=== PATIENT | female | born 1990 ===

== ENCOUNTER 2017-07-11 01:29 | Observation (INO) | payer SELFPAY ==
--- NOTE | 2017-07-11 01:48 | ED PDOC ---
Arrival/HPI - General Chief Complaint: Abdominal Pain Time Seen by Provider: 07/11/17 01:36 Historian: Patient - History of Present Illness Narrative History of Present Illness (Text): 07/11/17 01:47 Tracy Martinez is a 26 year old female, with no significant past medical history , presents to the Emergency department complaining of abdominal pain radiating to her back for months. Patient states pain worsened today with associated nausea and vomiting. Patient denies any fever, chills, chest pain, shortness of breath, diarrhea, urinary symptoms, headache, dizziness, or any other complaints. Time/Duration: > month (few months) Symptom Onset: Gradual Symptom Course: Worsening Activities at Onset: Light Context: Home Past Medical History - Provider Review Nursing Documentation Reviewed: Yes - Travel History Have you recently traveled outside [place] w/in the past 3 mons?: No - Genitourinary/Gynecological Other/Comment: pt has iud x1 yr - Psychiatric Hx Substance Use: No - Surgical History Hx Tonsillectomy: Yes Family/Social History - Physician Review Nursing Documentation Reviewed: Yes Family/Social History: Unknown Family HX Smoking Status: Never Smoked Hx Alcohol Use: No Hx Substance Use: No Allergies/Home Meds Allergies/Adverse Reactions: Allergies No Known Allergies Allergy (Verified 07/11/17 01:40) Home Medications: Home Meds Medication Instructions Recorded Confirmed No Known Home Med 07/11/17 07/11/17 Review of Systems - Physician Review All systems were reviewed & negative as marked: Yes - Review of Systems Constitutional: Normal. absent: Fevers Eyes: Normal ENT: Normal Respiratory: Normal. absent: SOB Cardiovascular: Normal. absent: Chest Pain Gastrointestinal: Abdominal Pain, Nausea, Vomiting. absent: Diarrhea Genitourinary Female: Normal. absent: Dysuria, Frequency, Hematuria, Urine Output Changes Musculoskeletal: Normal. absent: Back Pain, Neck Pain Skin: Normal. absent: Rash Neurological: Normal. absent: Headache, Dizziness Endocrine: Normal Hemo/Lymphatic: Normal Psychiatric: Normal Physical Exam Vital Signs Reviewed: Yes Vital Signs Temp Pulse Resp BP Pulse Ox 07/11/17 05:02 81 18 132/81 100 07/11/17 03:16 65 16 113/57 L 100 07/11/17 01:35 98.6 F 82 18 119/87 99 Temperature: Afebrile Blood Pressure: Normal Pulse: Regular Respiratory Rate: Normal Appearance: Positive for: Well-Appearing, Non-Toxic, Comfortable Pain Distress: None Mental Status: Positive for: Alert and Oriented X 3 - Systems Exam Head: Present: Atraumatic, Normocephalic Pupils: Present: PERRL Extroacular Muscles: Present: EOMI Conjunctiva: Present: Normal Mouth: Present: Moist Mucous Membranes Neck: Present: Normal Range of Motion Respiratory/Chest: Present: Clear to Auscultation, Good Air Exchange. No: Respiratory Distress, Accessory Muscle Use Cardiovascular: Present: Regular Rate and Rhythm, Normal S1, S2. No: Murmurs Abdomen: Present: Tenderness (Epigastric/ RUQ tenderness) Medical Decision Making ED Course and Treatment: 07/11/17 02:00 Impression: 26 year old female presents to the Emergency department with abdominal pain for months, worsening tonight. Plan: -- US Gallbladder -- Labs, lipase -- UA -- Reassess and disposition Progress Notes: 07/11/17 03:32 US Gallbladder: Liver: Normal echogenicity. No mass. No intrahepatic bile duct dilatation. Gallbladder: 1.5 cm nonmobile stone within neck. Sludge. No wall thickening. No pericholecystic fluid. No sonographic Luna's sign. Common bile duct: No dilatation. No stones. Pancreas: Unremarkable as visualized. Right kidney: Normal echogenicity. No hydronephrosis. IMPRESSION: 1. Cholelithiasis. 2. Incidental/non-acute findings are described above. 07/11/17 03:[address] Nataly Pearson, who is aware and agrees with plan. Accepts pt in to hospitalist service. Pt will go to [facility] observation for cholelithiasis. - Lab Interpretations Lab Results: 07/11/17 02:10 07/11/17 02:10 Lab Results 07/11/17 10:13: Blood Type Confirm O POSITIVE 07/11/17 10:00: Blood Type O POSITIVE, Antibody Screen Negative, BBK History Checked No verified bt 07/11/17 08:30: PT 12.7 H, INR 1.10 H, APTT 31.1 07/11/17 08:00: Phosphorus 3.7, Magnesium 1.9 07/11/17 02:10: Urine Color Yellow, Urine Appearance Clear, Urine pH 6.5, Ur Specific [place] 1.015, Urine Protein Negative, Urine Glucose (UA) Negative, Urine Ketones Negative, Urine Blood Negative, Urine Nitrate Negative, Urine Bilirubin Negative, Urine Urobilinogen 0.2, Ur Leukocyte Esterase Negative, Urine HCG, Qual Negative 07/11/17 02:10: Sodium 143, Potassium 3.9, Chloride 105, Carbon Dioxide 22, Anion Gap 20, BUN 11, Creatinine 0.7, Est GFR ( Amer) > 60, Est GFR (Non- Af Amer) > 60, Random Glucose 99, Calcium 9.9, Total Bilirubin 0.4, AST 30, ALT 24, Alkaline Phosphatase 94, Total Protein 8.1, Albumin 4.6, Globulin 3.4, Albumin/Globulin Ratio 1.3, Lipase 62 07/11/17 02:10: WBC 12.4 H, RBC 4.51, Hgb 13.0, Hct 37.6, MCV 83.4, MCH 28.8, MCHC 34.6, RDW 14.0, Plt Count 346, MPV 9.7, Gran % 74.7 H, Lymph % (Auto) 18.7 L, [place] % (Auto) 5.7, Eos % (Auto) 0.7 L, Baso % (Auto) 0.2, Gran # 9.22 H, Lymph # (Auto) 2.3, [place] # (Auto) 0.7 H, Eos # (Auto) 0.1, Baso # (Auto) 0.02 I have reviewed the lab results: Yes - RAD Interpretation Radiology Orders: 07/11/17 02:00 GALL BLADDER [US] Stat [employer]: Radiologist - Medication Orders Current Medication Orders: Enoxaparin Sodium (Lovenox) 40 mg SC DAILY [facility] PRN Reason: Protocol Hydromorphone HCl (Dilaudid) 0.5 mg IVP Q15M PRN PRN Reason: Pain, moderate (4-7) Stop: 07/11/17 20:06 Metronidazole (Flagyl) 500 mg in 100 mls @ 100 mls/hr IVPB Q8 [facility] PRN Reason: Protocol Last Admin: 07/11/17 13:00 Dose: 100 mls/hr eMAR Start Stop Document 07/11/17 13:00 ELIZABETH (Rec: 07/11/17 13:01 ELIZABETH [facility] [id number]) Intravenous Solution Start Date 02/05/18 Start Time 13:01 Sodium Chloride (Sodium Chloride 0.9%) 1,000 mls @ 100 mls/hr IV .Q10H [facility] Last Admin: 07/11/17 04:32 Dose: 100 mls/hr eMAR Start Stop Document 07/11/17 04:32 CNR (Rec: 07/11/17 04:32 CNR [facility] [id number]) Intravenous Solution Start Date 07/11/17 Start Time 04:32 Lactated Ringer's (Lactated Ringer's) 1,000 mls @ 100 mls/hr IV .Q10H [facility] Stop: 07/11/17 20:16 Ibuprofen (Motrin Tab) 400 mg PO Q6H PRN PRN Reason: Pain, moderate (4-7) Metoclopramide HCl (Reglan) 10 mg IV ONCE PRN PRN Reason: Nausea/Vomiting Stop: 07/11/17 23:59 Ondansetron HCl (Zofran Inj) 4 mg IVP Q4H PRN PRN Reason: Nausea/Vomiting Oxycodone/Acetaminophen (Percocet 10/325 Mg Tab) 1 tab PO Q4H PRN PRN Reason: Pain, severe (8-10) Oxycodone/Acetaminophen (Percocet 5/325 Mg Tab) 1 tab PO Q4H PRN PRN Reason: Pain, moderate (4-7) Stop: 07/14/17 18:07 Pantoprazole Sodium (Protonix Ec Tab) 40 mg PO 0600 [facility] Last Admin: 07/11/17 06:39 Dose: Not Given Non-Admin Reason: NPO Discontinued Medications Ciprofloxacin (Cipro 400mg/200ml Dsw) 400 mg in 200 mls @ 133.3 mls/hr IVPB STAT STA PRN Reason: Protocol Stop: 07/11/17 05:16 Metronidazole (Flagyl) 500 mg in 100 mls @ 100 mls/hr IVPB STAT STA PRN Reason: Protocol Stop: 07/11/17 04:45 Last Admin: 07/11/17 04:13 Dose: 100 mls/hr eMAR Start Stop Document 07/11/17 04:13 CNR (Rec: 07/11/17 04:17 CNR [facility] [id number]) Intravenous Solution Start Date 07/11/17 Start Time 04:17 Ciprofloxacin (Cipro 400mg/200ml Dsw) 400 mg in 200 mls @ 133.3 mls/hr IVPB Q12 [facility] PRN Reason: Protocol Stop: 07/11/17 11:31 Last Admin: 07/11/17 10:28 Dose: 133.3 mls/hr eMAR Start Stop Document 07/11/17 10:28 ELIZABETH (Rec: 07/11/17 10:28 AJ [facility] [id number]) Intravenous Solution Start Date 07/11/17 Start Time 10:28 - Scribe Statement The provider has reviewed the documentation as recorded by the Candice Hernandez training under Janine Bal All medical record entries made by the Candice were at my direction and personally dictated by me. I have reviewed the chart and agree that the record accurately reflects my personal performance of the history, physical exam, medical decision making, and the department course for this patient. I have also personally directed, reviewed, and agree with the discharge instructions and disposition. Disposition/Present on Arrival - Present on Arrival Any Indicators Present on Arrival: No History of DVT/PE: No History of Uncontrolled Diabetes: No Urinary Catheter: No History of Decub. Ulcer: No History Surgical Site Infection Following: None - Disposition Have Diagnosis and Disposition been Completed?: Yes Diagnosis: Cholelithiasis Disposition: HOSPITALIZED Disposition Time: 04:00 Condition: FAIR
[2017-07-11 02:25] LABS: BASO # 0.02 K/mm3 (0.0-2.0); BASO % 0.2 % (0.0-3.0); EOS # 0.1 (0.0-0.7); EOS % 0.7 % (1.5-5.0); GRAN # 9.22 (1.4-6.5); GRAN % 74.7 % (50.0-68.0); LYMPH # 2.3 (1.2-3.4); LYMPH % 18.7 % (22.0-35.0); MEAN CELL VOLUME 83.4 fl (80.0-105.0); MEAN CORPUSCULAR HEMOGLOBIN 28.8 pg (25.0-35.0); MEAN CORPUSCULAR HGB CONC 34.6 g/dl (31.0-37.0); MEAN PLATELET VOLUME 9.7 fl (7.0-11.0); MONO # 0.7 (0.1-0.6); MONO % 5.7 % (1.0-6.0); PH,URINE 6.5 (4.7-8.0); RBC 4.51 10^6/uL (3.5-6.1); URINE BILIRUBIN NEGATIVE (NEGATIVE); URINE BLOOD NEGATIVE (NEGATIVE); URINE GLUCOSE (UA) NEGATIVE (NEGATIVE); URINE LEUKOCYTE ESTERASE NEGATIVE Leu/uL (NEGATIVE); URINE NITRATE NEGATIVE (NEGATIVE); URINE PROTEIN NEGATIVE mg/dL (<30 mg/dL); URINE UROBILINOGEN 0.2 E.U./dL (<1 E.U./dL); WHITE BLOOD COUNT 12.4 10^3/ul (4.5-11.0)
[2017-07-11 02:27] LABS: URINE APPEARANCE CLEAR (CLEAR); URINE COLOR YELLOW (YELLOW)
[2017-07-11 02:31] LABS: ALB/GLOB RATIO 1.3 (1.1-1.8); ALBUMIN 4.6 g/dL (3.0-4.8); ALT/SGPT 24 U/L (7-56); AST/SGOT 30 U/L (14-36); BLOOD UREA NITROGEN 11 mg/dL (7-21); CALCIUM 9.9 mg/dL (8.4-10.5); GFR AFRICAN-AMERICAN > 60; GFR NON-AFRICAN AMERICAN > 60; LIPASE 62 U/L (23-300)
[2017-07-11 02:34] LABS: HCG,QUALITATIVE URINE NEGATIVE (NEGATIVE)
--- NOTE | 2017-07-11 03:27 | US ---
EXAM: US Abdomen Limited, Right Upper Quadrant CLINICAL HISTORY: 26 years old, female; Pain; Abdominal pain; Other: Ruq; Additional info: Ruq pain TECHNIQUE: Real-time ultrasound of the right upper quadrant with image documentation. COMPARISON: No relevant prior studies available. FINDINGS: Liver: Normal echogenicity. No mass. No intrahepatic bile duct dilatation. Gallbladder: 1.5 cm nonmobile stone within neck. Sludge. No wall thickening. No pericholecystic fluid. No sonographic Luna's sign. Common bile duct: No dilatation. No stones. Pancreas: Unremarkable as visualized. Right kidney: Normal echogenicity. No hydronephrosis. IMPRESSION: 1. Cholelithiasis. 2. Incidental/non-acute findings are described above.
[2017-07-11] MEDS ORDERED: metroNIDAZOLE IV 500 mg/100 ml 500 MG/100 ML BAG IVPB STA (03:46)
[2017-07-11] MEDS ORDERED: Ciprofloxacin 400mg/200ml D5W 400 MG/200 ML BAG IVPB STA (03:46)
--- NOTE | 2017-07-11 04:25 | CP.PCM.HP ---
History of Present Illness - History of Present Illness History of Present Illness: 26 year old female, with no significant past medical history, presents to the Emergency department complaining of abdominal pain radiating to her back for months. Patient states pain worsened today with associated nausea and vomiting. The pain is located in the epigastric area, occasionally radiating to the back. The pain is intermittent associated with food. Patient states that it started about 6 months ago and has been progressively worsening. She states that she took tums however it did not provide much relief. Patient states the pain was worse today prompting her to come to the ED. Patient denies any fever, chills, chest pain, shortness of breath, diarrhea, urinary symptoms, headache, dizziness , or any other complaints. PMH: denies PSH: tonsillectomy social history: denies smoking, occasional alcohol use, denies illicit drug use family history: mother gallstones allergy: NKDA Present on Admission - Present on Admission Any Indicators Present on Admission: No Review of Systems - Constitutional Constitutional: absent: Chills, Fatigue, Fever, Headache - EENT Nose/Mouth/Throat: absent: Nasal Congestion, Nasal Discharge, Sore Throat - Cardiovascular Cardiovascular: absent: Chest Pain, Dyspnea, Irregular Heart Rhythm, Palpitations - Respiratory Respiratory: absent: Cough, Dyspnea, Wheezing - Gastrointestinal Gastrointestinal: Abdominal Pain, Belching, Nausea, Vomiting. absent: Constipation, Diarrhea - Genitourinary Genitourinary: absent: Difficulty Urinating, Dysuria, Hematuria - Musculoskeletal Musculoskeletal: absent: Arthralgias, Back Pain, Numbness, Tingling - Integumentary Integumentary: absent: Skin Ulcer, Sores, Swelling, Wounds - Neurological Neurological: absent: Dizziness, Numbness, Syncope, Tingling, Weakness - Hematologic/Lymphatic Hematologic: absent: Easy Bleeding, Easy Bruising Past Patient History - Past Social History Smoking Status: Never Smoked - GENITOURINARY/GYNECOLOGICAL Other/Comment: pt has iud x1 yr - PSYCHIATRIC Hx Substance Use: No - SURGICAL HISTORY Hx Tonsillectomy: Yes Meds Allergies/Adverse Reactions: Allergies Allergy/AdvReac Type Severity Reaction Status Date / Time No Known Allergies Allergy Verified 07/11/17 01:40 Physical Exam - Constitutional Appears: Well, No Acute Distress - Head Exam Head Exam: ATRAUMATIC, NORMAL INSPECTION, NORMOCEPHALIC - Eye Exam Eye Exam: EOMI, Normal appearance - ENT Exam ENT Exam: Mucous Membranes Moist - Respiratory Exam Respiratory Exam: Clear to Auscultation Bilateral, NORMAL BREATHING PATTERN. absent: Decreased Breath Sounds, Rales, Rhonchi, Wheezes, Respiratory Distress - Cardiovascular Exam Cardiovascular Exam: REGULAR RHYTHM, +S1, +S2. absent: Tachycardia, Diastolic murmur, Systolic Murmur - GI/Abdominal Exam GI & Abdominal Exam: Normal Bowel Sounds, Soft, Tenderness (mild RUQ). absent: Distended, Firm - Extremities Exam Extremities exam: Positive for: normal inspection. Negative for: pedal edema, tenderness - Back Exam Back exam: NORMAL INSPECTION - Neurological Exam Neurological exam: Alert, CN II-XII Intact, Oriented x3 - Skin Skin Exam: Dry, Intact, Normal Color, Warm Results - Vital Signs Recent Vital Signs: Last Vital Signs Temp 98.6 F 07/11/17 01:35 Pulse 65 07/11/17 03:16 Resp 16 07/11/17 03:16 BP 113/57 L 07/11/17 03:16 Pulse Ox 100 07/11/17 03:16 - Labs Result Diagrams: 07/11/17 02:10 07/11/17 02:10 Labs: Laboratory Results - last 24 hr 07/11/17 07/11/17 07/11/17 02:10 02:10 02:10 WBC 12.4 H RBC 4.51 Hgb 13.0 Hct 37.6 MCV 83.4 MCH 28.8 MCHC 34.6 RDW 14.0 Plt Count 346 MPV 9.7 Gran % 74.7 H Lymph % (Auto) 18.7 L [place] % (Auto) 5.7 Eos % (Auto) 0.7 L Baso % (Auto) 0.2 Gran # 9.22 H Lymph # (Auto) 2.3 [place] # (Auto) 0.7 H Eos # (Auto) 0.1 Baso # (Auto) 0.02 Sodium 143 Potassium 3.9 Chloride 105 Carbon Dioxide 22 Anion Gap 20 BUN 11 Creatinine 0.7 Est GFR ( Amer) > 60 Est GFR (Non-Af Amer) > 60 Random Glucose 99 Calcium 9.9 Total Bilirubin 0.4 AST 30 ALT 24 Alkaline Phosphatase 94 Total Protein 8.1 Albumin 4.6 Globulin 3.4 Albumin/Globulin Ratio 1.3 Lipase 62 Urine Color Yellow Urine Appearance Clear Urine pH 6.5 Ur Specific [place] 1.015 Urine Protein Negative Urine Glucose (UA) Negative Urine Ketones Negative Urine Blood Negative Urine Nitrate Negative Urine Bilirubin Negative Urine Urobilinogen 0.2 Ur Leukocyte Esterase Negative Urine HCG, Qual Negative Assessment & Plan - Assessment and Plan (Free Text) Assessment: 26 year old female, with no significant past medical history, presents to the Emergency department complaining of abdominal pain radiating to her back for months found to have cholelithiasis. Plan: cholelithiasis - Abd US showed cholelitiasis without signs of inflammation - patient is afebrile with mild leukocytosis - lipase within normal limits - received cipro and flagyl in ED, will cont those antibiotics - NPO - zofran prn - Motrin prn for pain - IVF NS @100 - GI consulted - Surgery consulted GI ppx- protonix DVT ppx- scds
[2017-07-11] MEDS: Sodium Chloride 0.9% 1,000 ML IV SCH ×2 (04:32→19:06)
--- NOTE | 2017-07-11 05:24 | CP.PCM.CON ---
<NahidJoann - Last Filed: 07/11/17 05:18> History of Present Illness - History of Present Illness History of Present Illness: General surgery consult report for Dr. Ragsdale 26F with no significant PMH or PSH who presented to ED with epigastric abdominal pain, anusea and vomiting for several hours in duration. Patient states the pain started yesterday evening after eating several dairy products and pizza and was associated with multiple episodes of nausea and vomiting of non-bilious, non-bloody emesis. Pain radiates to the mid back. Pain did not improve with tums or tylenol. Patient denies any diarrhea, melena, hematochezia , dysuria, hematuria, chest pain, SOB, fevers, or chills. Patient states that she has had occasional episodes of similar symptoms for past 6 months but they are increasing in intensity and frequency over the past month until the pain today was 10/10 and she came to the ER. Currently pain is persistent but improved with pain medication. Review of Systems - Review of Systems All systems: reviewed and no additional remarkable complaints except Past Patient History - Past Medical History & Family History Past Medical History?: Yes Pertinent Family History: Mother: cholelithiasis - Past Social History Smoking Status: Never Smoked Alcohol: Occasional Drugs: Denies - GENITOURINARY/GYNECOLOGICAL Other/Comment: pt has iud x1 yr - PSYCHIATRIC Hx Substance Use: No - SURGICAL HISTORY Hx Tonsillectomy: Yes Meds Allergies/Adverse Reactions: Allergies Allergy/AdvReac Type Severity Reaction Status Date / Time No Known Allergies Allergy Verified 07/11/17 01:40 - Medications Medications: Current Medications Metronidazole (Flagyl) 500 mg in 100 mls @ 100 mls/hr IVPB Q8 [facility] PRN Reason: Protocol Sodium Chloride (Sodium Chloride 0.9%) 1,000 mls @ 100 mls/hr IV .Q10H [facility] Last Admin: 07/11/17 04:32 Dose: 100 mls/hr Ciprofloxacin (Cipro 400mg/200ml Dsw) 400 mg in 200 mls @ 133.3 mls/hr IVPB Q12 [facility] PRN Reason: Protocol Stop: 07/11/17 11:31 Ibuprofen (Motrin Tab) 400 mg PO Q6H PRN PRN Reason: Pain, moderate (4-7) Ondansetron HCl (Zofran Inj) 4 mg IVP Q4H PRN PRN Reason: Nausea/Vomiting Pantoprazole Sodium (Protonix Ec Tab) 40 mg PO 0600 [facility] Physical Exam - Constitutional Appears: Well, Non-toxic, No Acute Distress - Head Exam Head Exam: ATRAUMATIC, NORMOCEPHALIC - Eye Exam Eye Exam: Normal appearance. absent: Conjunctival injection, Scleral icterus - ENT Exam ENT Exam: Mucous Membranes Moist, Normal Oropharynx - Neck Exam Neck exam: Positive for: Normal Inspection - Respiratory Exam Respiratory Exam: Clear to Auscultation Bilateral, NORMAL BREATHING PATTERN. absent: Accessory Muscle Use, Respiratory Distress - Cardiovascular Exam Cardiovascular Exam: RRR - GI/Abdominal Exam GI & Abdominal Exam: Normal Bowel Sounds, Soft, Tenderness (epigastric and RUQ) . absent: Distended, Rebound Additional comments: positive murphys sign - Extremities Exam Extremities exam: Positive for: pedal pulses present. Negative for: calf tenderness, pedal edema - Back Exam Back exam: absent: CVA tenderness (L), CVA tenderness (R) - Neurological Exam Neurological exam: Alert, Oriented x3 - Psychiatric Exam Psychiatric exam: Normal Affect, Normal Mood - Skin Skin Exam: Dry, Intact, Normal Color, Warm Results - Vital Signs Recent Vital Signs: Last Vital Signs Temp 98.6 F 07/11/17 01:35 Pulse 81 07/11/17 05:02 Resp 18 07/11/17 05:02 BP 132/81 07/11/17 05:02 Pulse Ox 100 07/11/17 05:02 - Labs Result Diagrams: 07/11/17 02:10 07/11/17 02:10 Assessment & Plan - Assessment and Plan (Free Text) Assessment: 26F with symptomatic cholelithiasis, possible cholecystitis - US: large non-mobile gallstone in the gallbladder neck - WBC: 12.4 with mild left shift - LFT's wnl Plan: - NPO - IVF - monitor vitals, intake and output - incentive spirometer, SCD's - Cholecystectomy is indicated, either this hospitalization or as an outpatient - F/u AM CBC/CMP - PRN pain and nausea medication - Abdominal exam later this AM Will discuss with DR. Ragsdale--further recs per him Joann Whitfield, PGY2 <Sergio Ragsdale - Last Filed: 07/17/17 17:48> Results - Vital Signs Recent Vital Signs: Last Vital Signs Temp 97.9 F 07/12/17 06:00 Pulse 90 07/12/17 06:00 Resp 20 07/12/17 06:00 BP 110/71 07/12/17 06:00 Pulse Ox 97 07/12/17 06:00 - Labs Result Diagrams: 07/12/17 06:30 07/12/17 06:30 Attending/Attestation - Attestation I have personally seen and examined this patient.: Yes I have fully participated in the care of the patient.: Yes I have reviewed all pertinent clinical information: Yes Notes (Text): Pt was seen and examined at bedside Agree with above note and assessment Pt with Abdominal pain and epigastric tenderness Labs and radilolgy reviewed Ass: Acute Cholecystitis with Cholelithiasis OR for Lap Cholecystectomy possible Open Consnet NPO, IVF IV antibiotics Plan d.w pt in detail Risk and benefit explained in detail.
[2017-07-11] MEDS ORDERED: Pantoprazole 40 mg EC Tab PO SCH (06:00)
[2017-07-11] MEDS: metroNIDAZOLE IV 500 mg/100 ml 500 MG/100 ML BAG IVPB SCH ×3 (06:40→22:23)
--- NOTE | 2017-07-11 08:47 | CP.PCM.CON ---
<Weston Juan - Last Filed: 07/11/17 08:25> History of Present Illness - History of Present Illness History of Present Illness: Initial PGY4 GI Consult Tracy Martinez is a 26F w/ sig medical hx who presents to the ER with abdominal pain. Pt states that her abdominal pain started in January 2017. The pain was in the RUQ and epigastric area. She notes that it would be intermittent and mostly occur after meals (particularly fatty). She notes that the pain initially last a few hours and then would subside. She notes that the frequency of attacks eventually worsened. She notes that her pain occurred multiple times May and Jun. She denies any fever, chills, or diaphoresis. Denies any excessive alcohol use. She denies any recently or previous scleral icturus or juandice. Upon arrival to the ED, an abdominal U/S revealed a 1.5cm stone in her gallbladder neck and LFTs were normal. There were also no sign of cholecystitis on U/S.She had 1-2 episodes of emesis which contained food material and denies any melena, hematemsis or coffee-ground emesis. PMHx: none PSHx: Tonsillectomy 5 years ago Social hx: denies smoking, social alcohol use, denies illicit drug use Endo Hx: denies ROS: 10 point ROS conducted neg other than above Past Patient History - Past Medical History & Family History Past Medical History?: Yes - Past Social History Smoking Status: Never Smoked - MUSCULOSKELETAL/RHEUMATOLOGICAL Hx Falls: No - GENITOURINARY/GYNECOLOGICAL Other/Comment: pt has iud x1 yr - PSYCHIATRIC Hx Substance Use: No - SURGICAL HISTORY Hx Tonsillectomy: Yes Meds Allergies/Adverse Reactions: Allergies Allergy/AdvReac Type Severity Reaction Status Date / Time No Known Allergies Allergy Verified 07/11/17 01:40 - Medications Medications: Current Medications Metronidazole (Flagyl) 500 mg in 100 mls @ 100 mls/hr IVPB Q8 JUSTIN PRN Reason: Protocol Last Admin: 07/11/17 06:40 Dose: Not Given Sodium Chloride (Sodium Chloride 0.9%) 1,000 mls @ 100 mls/hr IV .Q10H [facility] Last Admin: 07/11/17 04:32 Dose: 100 mls/hr Ciprofloxacin (Cipro 400mg/200ml Dsw) 400 mg in 200 mls @ 133.3 mls/hr IVPB Q12 JUSTIN PRN Reason: Protocol Stop: 07/11/17 11:31 Ibuprofen (Motrin Tab) 400 mg PO Q6H PRN PRN Reason: Pain, moderate (4-7) Ondansetron HCl (Zofran Inj) 4 mg IVP Q4H PRN PRN Reason: Nausea/Vomiting Pantoprazole Sodium (Protonix Ec Tab) 40 mg PO 0600 [facility] Last Admin: 07/11/17 06:39 Dose: Not Given Physical Exam - Constitutional Appears: Well, No Acute Distress - Head Exam Head Exam: ATRAUMATIC, NORMOCEPHALIC - Eye Exam Eye Exam: Normal appearance - ENT Exam ENT Exam: Mucous Membranes Moist - Neck Exam Neck exam: Positive for: Normal Inspection - Respiratory Exam Respiratory Exam: Clear to Auscultation Bilateral, NORMAL BREATHING PATTERN. absent: Rales, Rhonchi, Wheezes, Respiratory Distress - Cardiovascular Exam Cardiovascular Exam: REGULAR RHYTHM, +S1, +S2 - GI/Abdominal Exam GI & Abdominal Exam: Normal Bowel Sounds, Soft. absent: Guarding, Organomegaly , Rebound, Rigid, Tenderness - Extremities Exam Extremities exam: Negative for: joint swelling, pedal edema - Back Exam Back exam: NORMAL INSPECTION - Neurological Exam Neurological exam: Alert, Oriented x3 - Psychiatric Exam Psychiatric exam: Normal Affect, Normal Mood - Skin Skin Exam: Dry, Intact, Normal Color, Warm Results - Vital Signs Recent Vital Signs: Last Vital Signs Temp 98.7 F 07/11/17 06:00 Pulse 77 07/11/17 06:00 Resp 20 07/11/17 06:00 BP 145/97 H 07/11/17 06:00 Pulse Ox 97 07/11/17 06:00 - Labs Result Diagrams: 07/11/17 02:10 07/11/17 02:10 Assessment & Plan - Assessment and Plan (Free Text) Assessment: Tracy Martinez is a 26F w/ no medical hx who presents to the ER w/ abd pain Choelithiasis w/o CBD obstruction Abd pain 2/2 above Plan: -Reviewed U/S finding, no GI intervention indicated -recommend Lap ward -surgery on board -diet as per surgery -no indication for abx -will sign off D/W Dr. Stubbs <Alejandro Stubbs Y - Last Filed: 07/11/17 09:01> Meds - Medications Medications: Current Medications Metronidazole (Flagyl) 500 mg in 100 mls @ 100 mls/hr IVPB Q8 JUSTIN PRN Reason: Protocol Last Admin: 07/11/17 06:40 Dose: Not Given Sodium Chloride (Sodium Chloride 0.9%) 1,000 mls @ 100 mls/hr IV .Q10H [facility] Last Admin: 07/11/17 04:32 Dose: 100 mls/hr Ciprofloxacin (Cipro 400mg/200ml Dsw) 400 mg in 200 mls @ 133.3 mls/hr IVPB Q12 JUSTIN PRN Reason: Protocol Stop: 07/11/17 11:31 Ibuprofen (Motrin Tab) 400 mg PO Q6H PRN PRN Reason: Pain, moderate (4-7) Ondansetron HCl (Zofran Inj) 4 mg IVP Q4H PRN PRN Reason: Nausea/Vomiting Pantoprazole Sodium (Protonix Ec Tab) 40 mg PO 0600 [facility] Last Admin: 07/11/17 06:39 Dose: Not Given Results - Vital Signs Recent Vital Signs: Last Vital Signs Temp 98.7 F 07/11/17 06:00 Pulse 77 07/11/17 06:00 Resp 20 07/11/17 06:00 BP 145/97 H 07/11/17 06:00 Pulse Ox 97 07/11/17 06:00 - Labs Result Diagrams: 07/11/17 02:10 07/11/17 02:10 Labs: Laboratory Results - last 24 hr 07/11/17 08:00 Phosphorus 3.7 Magnesium 1.9 Attending/Attestation - Attestation I have personally seen and examined this patient.: Yes I have fully participated in the care of the patient.: Yes I have reviewed all pertinent clinical information: Yes Notes (Text): 07/11/17 08:56 I have seen and examined patient with GI fellow. Agree with above documentation with the following additions. In brief, this is a 26 year old female with history of obesity (BMI 34) who presents to hospital with complaint of sudden onset abdominal pain which started yesterday. She describes severe epigastric pain, 10/10 intensity that radiates to back and is worse after fatty meal consumption. This was associated with 2 episodes of non bloody vomiting. She denies fever/chills, weight loss, jaundice, pruritis, or diarrhea. She has been having intermittent similar episodes since January 2017, most recently last month. Family history: reviewed, patient denies history of GI malignancy Abdominal pain Cholelithiasis Abdominal US reviewed by me showing a large 1.5 cm gallstone in GB neck - no biliary dilation, normal caliber CBD - NPO - No clinical indication for antibiotic therapy, can likely discontinue - Patient should undergo cholecystectomy given recurrent symptoms with cholelithiasis - Follow up surgical recommendations - No planned GI intervention, will sign off case. Please reconsult as necessary , thank you.
[2017-07-11 08:49] LABS: MAGNESIUM 1.9 mg/dL (1.7-2.2)
[2017-07-11 09:01] LABS: INR 1.1 (0.93-1.08); PARTIAL THROMBOPLASTIN TIME 31.1 Seconds (25.1-36.5); PROTHROMBIN TIME 12.7 SECONDS (9.4-12.5)
[2017-07-11] MEDS ORDERED: Ciprofloxacin 400mg/200ml D5W 400 MG/200 ML BAG IVPB SCH (10:00)
[2017-07-11 14:15] VITALS: TEMP 97.9
[2017-07-11] MEDS ORDERED: Lidocaine 1% w Epi 1:100,000 Inj ONE (15:49)
[2017-07-11] MEDS ORDERED: Bupivacaine 0.5% Inj(30mL) ONE (15:50)
[2017-07-11] MEDS ORDERED: Rocuronium 10 mg/ml (5 ml) ONE (17:09)
[2017-07-11] MEDS ORDERED: Neostigmine Methylsulfate 3mg/3ml Syringe IV ONE (17:11)
--- NOTE | 2017-07-11 17:59 | CARD ---
APPROVED REPORT EKG Measurement Heart [id number] CT [id number] <Conclusion> Normal sinus rhythm Normal ECG
--- NOTE | 2017-07-11 18:05 | PCM.SURG1 ---
Surgeon's Initial Post Op Note - Surgeon's Notes Surgeon: Dr. Ragsdale Traffic Coordinator: Dr. Brady PGY3 Type of Anesthesia: General Endo, Local Pre-Operative Diagnosis: acute cholecystitis Operative Findings: acute inflammed gallbladder Post-Operative Diagnosis: same Operation Performed: laparoscopic cholecystectomy Specimen/Specimens Removed: gallbladder Estimated Blood Loss: EBL {In ML}: 10 Blood Products Given: N/A Drains Used: No Drains Post-Op Condition: Good Date of Surgery/Procedure: 07/11/17 Time of Surgery/Procedure: 18:05
[2017-07-11] MEDS ORDERED: HYDROmorphone 0.5 mg/0.5 ml ISec IVP PRN (18:06)
[2017-07-11] MEDS ORDERED: Oxycodone/Acetaminophen 10/325 mg Tab PO PRN (18:06)
[2017-07-11] MEDS ORDERED: Lactated Ringer's 1,000 ML IV SCH (18:15)
[2017-07-11] MEDS ORDERED: HYDROmorphone 0.5 mg/0.5 ml ISec IVP ONE (18:18)
[2017-07-11] MEDS ORDERED: HYDROmorphone 0.5 mg/0.5 ml ISec ONE (18:18)
[2017-07-11] MEDS: Oxycodone/Acetaminophen 5/325 mg Tab PO PRN (22:57)
[2017-07-12] MEDS: Sodium Chloride 0.9% 1,000 ML IV SCH (02:46)
[2017-07-12] MEDS: Oxycodone/Acetaminophen 5/325 mg Tab PO PRN (04:23)
[2017-07-12] MEDS: metroNIDAZOLE IV 500 mg/100 ml 500 MG/100 ML BAG IVPB SCH (05:57)
[2017-07-12 07:13] LABS: BASO # 0.01 K/mm3 (0.0-2.0); BASO % 0.1 % (0.0-3.0); GRAN # 7.62 (1.4-6.5); GRAN % 84.6 % (50.0-68.0); HEMOGLOBIN 11.8 g/dL (12.0-16.0); LYMPH % 11.2 % (22.0-35.0); MEAN CELL VOLUME 84.1 fl (80.0-105.0); MEAN CORPUSCULAR HGB CONC 33.3 g/dl (31.0-37.0); MEAN PLATELET VOLUME 9.8 fl (7.0-11.0); MONO # 0.4 (0.1-0.6); MONO % 4.1 % (1.0-6.0); RBC 4.21 10^6/uL (3.5-6.1)
[2017-07-12 08:01] VITALS: BP 110/71; PULSE 90; RESP 20; O2SAT 97
[2017-07-12 08:01] LABS: ALB/GLOB RATIO 1.3 (1.1-1.8); ALBUMIN 3.9 g/dL (3.0-4.8); ALT/SGPT 31 U/L (7-56); AST/SGOT 42 U/L (14-36); BLOOD UREA NITROGEN 8 mg/dL (7-21); CALCIUM 8.8 mg/dL (8.4-10.5); GFR AFRICAN-AMERICAN > 60; GFR NON-AFRICAN AMERICAN > 60
--- NOTE | 2017-07-12 09:27 | CP.PCM.DIS ---
<Hussain Leal - Last Filed: 07/12/17 15:45> Provider - Provider Date of Admission: 07/11/17 13:13 Attending physician: Bhargav Paz MD Consults: GI: Enoc Surgery: Melyssa Time Spent in preparation of Discharge (in minutes): 45 Hospital Course - Lab Results Lab Results: Most Recent Lab Values WBC 9.0 10^3/ul (4.5-11.0) D 07/12/17 06:30 RBC 4.21 10^6/uL (3.5-6.1) 07/12/17 06:30 Hgb 11.8 g/dL (12.0-16.0) L 07/12/17 06:30 Hct 35.4 % (36.0-48.0) L 07/12/17 06:30 MCV 84.1 fl (80.0-105.0) 07/12/17 06:30 MCH 28.0 pg (25.0-35.0) 07/12/17 06:30 MCHC 33.3 g/dl (31.0-37.0) 07/12/17 06:30 RDW 14.0 % (11.5-14.5) 07/12/17 06:30 Plt Count 339 10^3/uL (120.0-450.0) 07/12/17 06:30 MPV 9.8 fl (7.0-11.0) 07/12/17 06:30 Gran % 84.6 % (50.0-68.0) H 07/12/17 06:30 Lymph % (Auto) 11.2 % (22.0-35.0) L 07/12/17 06:30 [place] % (Auto) 4.1 % (1.0-6.0) 07/12/17 06:30 Eos % (Auto) 0.0 % (1.5-5.0) L 07/12/17 06:30 Baso % (Auto) 0.1 % (0.0-3.0) 07/12/17 06:30 Gran # 7.62 (1.4-6.5) H 07/12/17 06:30 Lymph # (Auto) 1.0 (1.2-3.4) L 07/12/17 06:30 [place] # (Auto) 0.4 (0.1-0.6) 07/12/17 06:30 Eos # (Auto) 0.0 (0.0-0.7) 07/12/17 06:30 Baso # (Auto) 0.01 K/mm3 (0.0-2.0) 07/12/17 06:30 PT 12.7 SECONDS (9.4-12.5) H 07/11/17 08:30 INR 1.10 (0.93-1.08) H 07/11/17 08:30 APTT 31.1 Seconds (25.1-36.5) 07/11/17 08:30 Sodium 140 mmol/L (132-148) 07/12/17 06:30 Potassium 4.1 mmol/L (3.6-5.0) 07/12/17 06:30 Chloride 107 mmol/L (98-107) 07/12/17 06:30 Carbon Dioxide 21 mmol/L (21-33) 07/12/17 06:30 Anion Gap 16 (10-20) 07/12/17 06:30 BUN 8 mg/dL (7-21) 07/12/17 06:30 Creatinine 0.7 mg/dl (0.7-1.2) 07/12/17 06:30 Est GFR ( Amer) > 60 07/12/17 06:30 Est GFR (Non-Af Amer) > 60 07/12/17 06:30 Random Glucose 121 mg/dL (70-110) H 07/12/17 06:30 Calcium 8.8 mg/dL (8.4-10.5) 07/12/17 06:30 Phosphorus 3.7 mg/dL (2.5-4.5) 07/11/17 08:00 Magnesium 1.9 mg/dL (1.7-2.2) 07/11/17 08:00 Total Bilirubin 0.5 mg/dL (0.2-1.3) 07/12/17 06:30 AST 42 U/L (14-36) H D 07/12/17 06:30 ALT 31 U/L (7-56) 07/12/17 06:30 Alkaline Phosphatase 65 U/L (38-126) 07/12/17 06:30 Total Protein 7.0 g/dL (5.8-8.3) 07/12/17 06:30 Albumin 3.9 g/dL (3.0-4.8) 07/12/17 06:30 Globulin 3.1 gm/dL 07/12/17 06:30 Albumin/Globulin Ratio 1.3 (1.1-1.8) 07/12/17 06:30 Lipase 62 U/L (23-300) 07/11/17 02:10 Urine Color Yellow (YELLOW) 07/11/17 02:10 Urine Appearance Clear (CLEAR) 07/11/17 02:10 Urine pH 6.5 (4.7-8.0) 07/11/17 02:10 Ur Specific [place] 1.015 (1.005-1.035) 07/11/17 02:10 Urine Protein Negative mg/dL (<30 mg/dL) 07/11/17 02:10 Urine Glucose (UA) Negative mg/dL (NEGATIVE) 07/11/17 02:10 Urine Ketones Negative mg/dL (NEGATIVE) 07/11/17 02:10 Urine Blood Negative (NEGATIVE) 07/11/17 02:10 Urine Nitrate Negative (NEGATIVE) 07/11/17 02:10 Urine Bilirubin Negative (NEGATIVE) 07/11/17 02:10 Urine Urobilinogen 0.2 E.U./dL (<1 E.U./dL) 07/11/17 02:10 Ur Leukocyte Esterase Negative Gopal/uL (NEGATIVE) 07/11/17 02:10 Urine HCG, Qual Negative (NEGATIVE) 07/11/17 02:10 Blood Type O POSITIVE 07/11/17 10:00 Blood Type Confirm O POSITIVE 07/11/17 10:13 Antibody Screen Negative 07/11/17 10:00 BBK History Checked No verified bt 07/11/17 10:00 - Hospital Course Hospital Course: 26yo F with no significant PMHx here for evaluation of RUQ pain which has been waxing and waning for several months, related to food intake. Abd US with evidence of cholelithiasis. On Admission, No elevated LFTs noted. Leukocytosis noted. GI consulted and no intervention was warranted. Surgery was consulted and she was taken for Lap Cholecystectomy the following day. No post-operative complications were noted. Patient was tolerating diet, ambulating and was recommended discharge with minimal pain meds and follow up with Dr. Ragsdale in 1 week. Plan and recommendations were discussed with the patient at length, who expressed understanding and agreement. 1. Symptomatic Cholelithiasis. s/p Lap Corin. f/u with Dr. Ragsdale in 1 week Patient is cleared for discharge as per Dr. Paz. 1. Follow up with your PMD 2. Follow up with Dr. Ragsdale in 1 week. Call for appointment. 3. Use pain meds sparingly. You may use OTC ibuprofen or acetamenophen as needed. 4. No heavy lifting for at least 4 weeks. 5. Return to the ER with any concerning symptoms. Discharge Exam - Head Exam Head Exam: ATRAUMATIC, NORMAL INSPECTION, NORMOCEPHALIC - Eye Exam Eye Exam: EOMI, Normal appearance - ENT Exam ENT Exam: Mucous Membranes Moist - Respiratory Exam Respiratory Exam: Clear to PA & Lateral, NORMAL BREATHING PATTERN, UNREMARKABLE. absent: Accessory Muscle Use, Wheezes, Respiratory Distress - Cardiovascular Exam Cardiovascular Exam: REGULAR RHYTHM, RRR. absent: JVD - GI/Abdominal Exam GI & Abdominal Exam: Soft. absent: Distended, Firm, Guarding, Rebound, Rigid, Tenderness Additional comments: dressings intact. - Extremities Exam Extremities exam: normal inspection - Neurological Exam Neurological exam: Alert, Oriented x3 - Psychiatric Exam Psychiatric exam: Normal Affect, Normal Mood - Skin Skin Exam: Dry, Intact, Normal Color, Warm Discharge Plan - Discharge Medications Prescriptions: oxyCODONE/Acetaminophen [Percocet 5/325 mg Tab] 1 tab PO Q4H PRN #5 tab PRN Reason: Pain, Moderate (4-7) - Follow Up Plan Condition: FAIR Disposition: HOME/ ROUTINE Instructions: Laparoscopic Cholecystectomy (DC), Influenza Vaccine (GEN) Additional Instructions: Patient is cleared for discharge as per Dr. Paz. 1. Follow up with your PMD 2. Follow up with Dr. Ragsdale in 1 week. Call for appointment. 3. Use pain meds sparingly. You may use OTC ibuprofen or acetamenophen as needed. 4. No heavy lifting for at least 4 weeks. 5. Return to the ER with any concerning symptoms. Referrals: Sergio Ragsdale MD [Medical Doctor] - <Bhargav Paz - Last Filed: 07/12/17 17:09> Provider - Provider Date of Admission: 07/11/17 03:45 Attending physician: Bhargav Paz MD Hospital Course - Lab Results Lab Results: Micro Results 07/11/17 04:05 Blood-Venous Blood Culture - Preliminary NO GROWTH AFTER 24 HOURS 07/11/17 03:50 Blood-Venous Blood Culture - Preliminary NO GROWTH AFTER 24 HOURS Most Recent Lab Values WBC 9.0 10^3/ul (4.5-11.0) D 07/12/17 06:30 RBC 4.21 10^6/uL (3.5-6.1) 07/12/17 06:30 Hgb 11.8 g/dL (12.0-16.0) L 07/12/17 06:30 Hct 35.4 % (36.0-48.0) L 07/12/17 06:30 MCV 84.1 fl (80.0-105.0) 07/12/17 06:30 MCH 28.0 pg (25.0-35.0) 07/12/17 06:30 MCHC 33.3 g/dl (31.0-37.0) 07/12/17 06:30 RDW 14.0 % (11.5-14.5) 07/12/17 06:30 Plt Count 339 10^3/uL (120.0-450.0) 07/12/17 06:30 MPV 9.8 fl (7.0-11.0) 07/12/17 06:30 Gran % 84.6 % (50.0-68.0) H 07/12/17 06:30 Lymph % (Auto) 11.2 % (22.0-35.0) L 07/12/17 06:30 [place] % (Auto) 4.1 % (1.0-6.0) 07/12/17 06:30 Eos % (Auto) 0.0 % (1.5-5.0) L 07/12/17 06:30 Baso % (Auto) 0.1 % (0.0-3.0) 07/12/17 06:30 Gran # 7.62 (1.4-6.5) H 07/12/17 06:30 Lymph # (Auto) 1.0 (1.2-3.4) L 07/12/17 06:30 [place] # (Auto) 0.4 (0.1-0.6) 07/12/17 06:30 Eos # (Auto) 0.0 (0.0-0.7) 07/12/17 06:30 Baso # (Auto) 0.01 K/mm3 (0.0-2.0) 07/12/17 06:30 PT 12.7 SECONDS (9.4-12.5) H 07/11/17 08:30 INR 1.10 (0.93-1.08) H 07/11/17 08:30 APTT 31.1 Seconds (25.1-36.5) 07/11/17 08:30 Sodium 140 mmol/L (132-148) 07/12/17 06:30 Potassium 4.1 mmol/L (3.6-5.0) 07/12/17 06:30 Chloride 107 mmol/L (98-107) 07/12/17 06:30 Carbon Dioxide 21 mmol/L (21-33) 07/12/17 06:30 Anion Gap 16 (10-20) 07/12/17 06:30 BUN 8 mg/dL (7-21) 07/12/17 06:30 Creatinine 0.7 mg/dl (0.7-1.2) 07/12/17 06:30 Est GFR ( Amer) > 60 07/12/17 06:30 Est GFR (Non-Af Amer) > 60 07/12/17 06:30 Random Glucose 121 mg/dL (70-110) H 07/12/17 06:30 Calcium 8.8 mg/dL (8.4-10.5) 07/12/17 06:30 Phosphorus 3.7 mg/dL (2.5-4.5) 07/11/17 08:00 Magnesium 1.9 mg/dL (1.7-2.2) 07/11/17 08:00 Total Bilirubin 0.5 mg/dL (0.2-1.3) 07/12/17 06:30 AST 42 U/L (14-36) H D 07/12/17 06:30 ALT 31 U/L (7-56) 07/12/17 06:30 Alkaline Phosphatase 65 U/L (38-126) 07/12/17 06:30 Total Protein 7.0 g/dL (5.8-8.3) 07/12/17 06:30 Albumin 3.9 g/dL (3.0-4.8) 07/12/17 06:30 Globulin 3.1 gm/dL 07/12/17 06:30 Albumin/Globulin Ratio 1.3 (1.1-1.8) 07/12/17 06:30 Lipase 62 U/L (23-300) 07/11/17 02:10 Urine Color Yellow (YELLOW) 07/11/17 02:10 Urine Appearance Clear (CLEAR) 07/11/17 02:10 Urine pH 6.5 (4.7-8.0) 07/11/17 02:10 Ur Specific [place] 1.015 (1.005-1.035) 07/11/17 02:10 Urine Protein Negative mg/dL (<30 mg/dL) 07/11/17 02:10 Urine Glucose (UA) Negative mg/dL (NEGATIVE) 07/11/17 02:10 Urine Ketones Negative mg/dL (NEGATIVE) 07/11/17 02:10 Urine Blood Negative (NEGATIVE) 07/11/17 02:10 Urine Nitrate Negative (NEGATIVE) 07/11/17 02:10 Urine Bilirubin Negative (NEGATIVE) 07/11/17 02:10 Urine Urobilinogen 0.2 E.U./dL (<1 E.U./dL) 07/11/17 02:10 Ur Leukocyte Esterase Negative Gopal/uL (NEGATIVE) 07/11/17 02:10 Urine HCG, Qual Negative (NEGATIVE) 07/11/17 02:10 Blood Type O POSITIVE 07/11/17 10:00 Blood Type Confirm O POSITIVE 07/11/17 10:13 Antibody Screen Negative 07/11/17 10:00 BBK History Checked No verified bt 07/11/17 10:00 Attending/Attestation - Attestation I have personally seen and examined this patient.: Yes I have fully participated in the care of the patient.: Yes I have reviewed all pertinent clinical information, including history, physical exam and plan: Yes Notes (Text): 07/12/17 17:07 attending note; Patient seen and examined with resident. Patient is a 26-year-old female admitted with recurrent biliary colic. patient had 1.5 cm stone at gall bladder neck. surgery evaluation appreciated. Status post lap cholecystectomy. Leukocytosis resolved. Patient is tolerating diet. Ambulating fine. Discharge instructions given. Patient will follow-up with surgery in 1 week. Patient is advised to follow-up with PMD of choice. diagnosis; Cholelithiasis Recurrent biliary colic Status post lap cholecystectomy
--- NOTE | 2017-07-12 09:41 | CP.PCM.PN ---
<[place] - Last Filed: 07/12/17 10:01> Subjective - Date & Time of Evaluation Date of Evaluation: 07/12/17 Time of Evaluation: 06:45 - Subjective Subjective: General Surgery Progress Note for Dr. Melyssa Pearson seen and examined at bedside. Patient reports passing bowel movement, urinating, and ambulating. Patient reports pain is well controlled. Nurse reports no events overnight. Objective - Vital Signs/Intake and Output Vital Signs (last 24 hours): Temp Pulse Resp BP Pulse Ox 97.9 F 90 20 110/71 97 07/12/17 06:00 07/12/17 06:00 07/12/17 06:00 07/12/17 06:00 07/12/17 06:00 Intake and Output: 07/12/17 07/12/17 06:59 18:59 Intake Total 60 Balance 60 - Medications Medications: Current Medications Enoxaparin Sodium (Lovenox) 40 mg SC DAILY JUSTIN PRN Reason: Protocol Metronidazole (Flagyl) 500 mg in 100 mls @ 100 mls/hr IVPB Q8 JUSTIN PRN Reason: Protocol Last Admin: 07/12/17 05:57 Dose: 100 mls/hr Ibuprofen (Motrin Tab) 400 mg PO Q6H PRN PRN Reason: Pain, moderate (4-7) Last Admin: 07/11/17 20:21 Dose: 400 mg Ondansetron HCl (Zofran Inj) 4 mg IVP Q4H PRN PRN Reason: Nausea/Vomiting Oxycodone/Acetaminophen (Percocet 10/325 Mg Tab) 1 tab PO Q4H PRN PRN Reason: Pain, severe (8-10) Oxycodone/Acetaminophen (Percocet 5/325 Mg Tab) 1 tab PO Q4H PRN PRN Reason: Pain, moderate (4-7) Stop: 07/14/17 18:07 Last Admin: 07/12/17 04:23 Dose: 1 tab Pantoprazole Sodium (Protonix Ec Tab) 40 mg PO 0600 [facility] Last Admin: 07/11/17 06:39 Dose: Not Given - Labs Labs: 07/12/17 06:30 07/12/17 06:30 PT 12.7 SECONDS (9.4-12.5) H 07/11/17 08:30 INR 1.10 (0.93-1.08) H 07/11/17 08:30 APTT 31.1 Seconds (25.1-36.5) 07/11/17 08:30 - Constitutional Appears: Non-toxic, No Acute Distress - Head Exam Head Exam: ATRAUMATIC, NORMOCEPHALIC - Eye Exam Eye Exam: EOMI, Normal appearance - ENT Exam ENT Exam: Mucous Membranes Moist, Normal Oropharynx - Neck Exam Neck Exam: Normal Inspection - Respiratory Exam Respiratory Exam: NORMAL BREATHING PATTERN. absent: Accessory Muscle Use - GI/Abdominal Exam GI & Abdominal Exam: Soft. absent: Guarding, Rebound Additional comments: pain at incision sites - Extremities Exam Extremities Exam: Normal Inspection. absent: Calf Tenderness - Neurological Exam Neurological Exam: Alert, Awake, Oriented x3 - Psychiatric Exam Psychiatric exam: Normal Affect, Normal Mood - Skin Skin Exam: Dry, Intact, Normal Color, Warm Assessment and Plan - Assessment and Plan (Free Text) Assessment: 26 year old female with acute cholecystitis who is POD#1 from lapascopic cholecystectomy. Plan: Diet advanced to regular. Patient stable for discharge from a surgical standpoint. Patient to follow up with Dr. Ragsdale in 1 week. Patient to avoid lifting heavy weights Patient to take any medications as directed. Further recommendations per Dr. Ragsdale <Sergio Ragsdale - Last Filed: 07/17/17 17:52> Objective - Vital Signs/Intake and Output Vital Signs (last 24 hours): Temp Pulse Resp BP Pulse Ox 97.9 F 90 20 110/71 97 07/12/17 06:00 07/12/17 06:00 07/12/17 06:00 07/12/17 06:00 07/12/17 06:00 - Labs Labs: 07/12/17 06:30 07/12/17 06:30 PT 12.7 SECONDS (9.4-12.5) H 07/11/17 08:30 INR 1.10 (0.93-1.08) H 07/11/17 08:30 APTT 31.1 Seconds (25.1-36.5) 07/11/17 08:30 Attending/Attestation - Attestation I have fully participated in the care of the patient.: Yes I have reviewed all pertinent clinical information, including history, physical exam and plan: Yes Notes (Text): Pt can be DC home f.u as out pt Low fat diet Po anagesics f/u next week in office.
[2017-07-12] MEDS ORDERED: Enoxaparin 40 mg Syringe SC SCH (10:00)
--- NOTE | 2017-07-18 05:33 | OP ---
PROCEDURE DATE: 07/11/2017 PREOPERATIVE DIAGNOSES: 1. Acute cholecystitis. 2. Cholelithiasis. POSTOPERATIVE DIAGNOSES: 1. Acute cholecystitis and cholelithiasis. 2. Post infectious extensive omental adhesion. PROCEDURE DONE: 1. Laparoscopic cholecystectomy. 2. Laparoscopic lysis of extensive omental adhesion and enterolysis. SURGEON: Sergio Ragsdale MD DATA PROCESSING CONTROL CLERK: Anastasiia Brady, PGY-3 resident. TYPE OF ANESTHESIA: General endotracheal tube anesthesia. ESTIMATED BLOOD LOSS: Around 20 mL. DRAINS: None. PATHOLOGY: Gallbladder with gallstone was sent to the Pathology. COMPLICATIONS: None. INTRAOPERATIVE FINDINGS: The patient had acute cholecystitis and cholelithiasis as well as extensive postinfectious adhesion of the omentum to the liver, omentum to the gallbladder, the duodenum and colon to the gallbladder. DESCRIPTION OF PROCEDURE: On intraoperative steps, this 26-year-old female was diagnosed with acute cholecystitis and cholelithiasis. The patient was consented for laparoscopic cholecystectomy possible open, brought to the OR, and placed supine on the operating room table, after induction of anesthesia, abdomen was prepped and draped in the usual sterile fashion. A supraumbilical transverse incision was made after incising skin, subcutaneous tissue, and fascia. [place] port was placed, pneumo was created. A 12 mm port was placed in the midline. Another two 5 mm ports were placed in the midclavicular anterior axillary line. After that, grasper and dissector was introduced, and first omental adhesion was identified, and first extensive lysis of adhesions was done. The infundibulum of the gallbladder, was identified and now the gallbladder as retracted cranially. Calot's triangle dissection was continued. The firm adhesion of the duodenum and colon was dissected, and the infundibulum was retracted laterally. Calot's triangle dissection was done. Cystic duct and cystic artery were identified and clipped at three places and cut in between two clips in the gallbladder. The gallbladder was dissected free from the gallbladder fossa and placed in an EndoCatch bag, taken out through the umbilical port site and sent off the table for pathology. There was a proper hemostasis in each and every part of the procedure. After suction and irrigation of the gallbladder fossa as well as perihepatic area and after proper hemostasis, all the ports was taken out under vision, pneumo was deflated. The umbilical port site was closed in two layers, the fascia with 0-Vicryl interrupted suture, skin with 4-0 Monocryl, and dry sterile dressing was applied. The patient tolerated the procedure well. Count of the instrument was correct, there was no apparent complication. The patient was extubated in OR and sent to the Postanesthesia Care Unit in stable condition. Sergio Ragsdale MD
== END 2017-07-12 12:40 | disposition home or self-care (01) ==
LOC: ED 01:29 → ERH 03:45 → 5RSO 05:49 → INTOOBSV 13:13 → OBSVTOIN 13:13 → 5RNO 16:05 → 5RSO 17:34
PROVIDERS: ADMIT Internal Medicine; ATTEND Internal Medicine
DX: K80.12 Calculus of gallbladder with acute and chronic cholecystitis without obstruction (principal); E66.9 Obesity, unspecified; Z68.34 Body mass index [BMI] 34.0-34.9, adult; K66.0 Peritoneal adhesions (postprocedural) (postinfection)
CPT/HCPCS: 36415; 47562; 49329; 76705; 80053; 81003; 83690; 83735; 84100; 84703; 85025; 85610; 85730; 86850; 86900; 87040; 88304; 93005; 99284; G0378; J0744; J1100; J1170; J1885; J2001; J2250; J2405; J2704; J2710; J2765; J3010; J7040; J7120